=== PATIENT | female | born 1985 | race Caucasian/White ===

== ENCOUNTER 2018-10-30 18:03 | Emergency (ER) | payer BC ==
--- NOTE | 2018-10-30 18:15 | EDPHY ---
HPI/HX/ROS/PE/MDM Narrative: CLINICAL IMPRESSION: Acute pyelonephritis ASSESSMENT/PLAN: Patient is a 33-year-old female with a history of recurrent urinary tract infections and renal stone who presents to the emergency department with right flank pain, fevers, chills and dysuria. Patient is afebrile, nontoxic appearing , she is in no distress on arrival. Her abdomen was soft with mild suprapubic tenderness to palpation to palpation, no peritoneal signs and no evidence of a surgical abdomen; right CVA tenderness. CBC revealed mild [place] [id number]. Vital signs were reviewed- she was noted to be tachycardic on arrival, with fluid resuscitation initiated based on sepsis protocol. Lactate was reassuring and normal at 0.6. BMP revealed mild hypokalemia, no evidence of JOEL. UA with 3+ leukocyte esterase, 50-180 WBCs and bacteria; urine sent for culture. CT abdomen and pelvis w/out revealed nonobstructive 2 mm left nephrolith, no evidence of right-sided obstructive uropathy or evidence of ureterolithiasis; normal appearing appendix. History and physical examination is consistent with acute pyelonephritis, no evidence of stone. Patient was given 1.5 L of IV fluids, several doses of narcotic, Zofran and Toradol with marked improvement of symptoms in the emergency department. At this time I have considered other etiologies of her pain to include appendicitis, cholecystitis, pancreatitis, ACS, perforated viscus, diverticulitis, hernia, AAA, mesenteric ischemia or additional emergent intra-abdominal process however low clinical suspicion. negative, rule out ectopic. No pelvic pain to suggest PID, TOA or torsion. On repeat examination and prior to discharge the patient reports that she is feeling significantly better, her abdomen remained soft without evidence of a surgical abdomen. Her heart rate normalized to the low 90s. The patient is in the process of establishing care with Dr. Shay and will call tomorrow to ensure an appointment for repeat examination. Conservative return precautions discussed- patient will return for development of fever, persistent nausea or vomiting, signs of dehydration, chest pain, shortness of breath, abdominal pain , worsening or uncontrolled flank pain, urinary retention, dysuria, hematuria or for any other concerning symptom. The patient verbalizes understanding and she is in agreement with this plan. Case discussed with and patient seen by Dr. Means. DIFFERENTIAL DX: Flank pain including but not limited to musculoskeletal causes, kidney stone, pyelonephritis, shingles, and intra-abdominal causes such as diverticulitis and appendicitis. ED COURSE: 6:40 p.m.: Discussed with Dr. Means. 7:31 p.m.: Patient with a remote rash after taking Ceclor as a child, discussed with pharmacist. Safe to continue with 1 g of Rocephin. 8:25 p.m.: On repeat examination the patient is well-appearing, heart rate normalized at 90. Patient reports she is feeling significantly better. Patient feels ready to be discharged home. CHIEF COMPLAINT: Fever, chills, nausea and right flank pain HPI: Patient is a 33-year-old female who presents to the emergency department with complaints of fever, chills, nausea, decreased appetite and severe right flank pain. Patient reports a sudden onset of throbbing right flank pain yesterday at approximately 11:00 a.m., she took some CBD oil and Excedrin and ultimately the pain went away. This morning she woke up generally feeling unwell, felt feverish with body aches and chills. She was feeling better throughout the day however at 3 PM had another sudden onset of right flank pain that has been constant. She is now experiencing some dysuria and increased frequency of urination however denies any hematuria. Patient reports intermittent lower abdominal discomfort, denies any pelvic pain, vaginal bleeding or vaginal discharge. Does have a history of ovarian cyst, this does not feel similar to her. Last menstrual period 4 weeks ago, due. Patient was seen and evaluated at urgent care and sent here for further evaluation and treatment. Patient reports a history of frequent urinary tract infections up until several years ago. Also reports a history of a kidney stone as a child. No history of infected stones or lithotripsy. PMH: Frequent UTI, kidney stone Pertinent Past Surgical History: Denies Family History: Noncontributory Social History: CBD or oil, denies smoking, denies alcohol REVIEW OF SYSTEMS: All other systems negative Constitutional: Fever, chills and appetite change Eyes: No discharge, vision change ENT: No sore throat, congestion, ear pain. Cardiovascular: No chest pain, no palpitations. Respiratory: No cough, no shortness of breath. Gastrointestinal: Lower abdominal discomfort, nausea; denies vomiting, melena or hematochezia. Genitourinary: Right flank pain, dysuria; No hematuria or pelvic pain Musculoskeletal: No joint swelling, joint pain. Skin: No rashes, color change. Neurological: No dizziness, weakness. PHYSICAL EXAM: General Appearance: Alert, oriented, appropriate, cooperative, NAD, well hydrated, non-toxic appearing, VSS, no hypoxia. HEENT: TMs are clear bilaterally no perforation or FB, no injection, no evidence of serous or mucopurulent otitis. Oropharynx clear is no erythema or exudates, no tonsillar hypertrophy or asymmetry. Dentition without abnormality. Eyes: PERRLA, no acute vision change, nystagmus, swelling, discharge, pain or photosensitivity. Conjunctiva pink, no pallor or injection Neck: Supple, nontender, no lymphadenopathy, no midline pain, FROM, no meningismus. Respiratory: There are no retractions, lungs are clear to auscultation. Cardiac: Tachycardic on arrival, no murmurs or gallops. Gastrointestinal: Abdomen is soft, mild suprapubic tenderness to palpation, bowel sounds normal, no masses/hernia, no rigidity, guarding or focal peritoneal findings. Right CVA tenderness Neurological: Alert and oriented x 3, CN 2-12 grossly intact, normal gait no ataxia, DTR's intact, normal sensation and strength Skin: Warm, dry, no rashes, no nodules on palpation. Musculoskeletal: Extremities are symmetrical, full range of motion, no tenderness, deformity, swelling, or erythema. Psychiatric: Patient is oriented X 3, there is no agitation. MEDICAL DECISION MAKING: Patient was seen with Dr. Means. Diagnosis: Acute pyelonephritis. New, requires workup Summary: See Assessment and Plan for summary of ED visit Clinical lab tests: ordered / reviewed. Independent visualization of images, tracing, or specimens: Yes. Decision to obtain medical records or history from someone other than the patient: No Review / Summarize previous medical records: Not applicable Discussed patient with another provider: Yes, Dr. Means Patient Progress: Stable for discharge.. (Taisha Rao) ED Course: This patient was seen and examined by me. She is nontoxic appearing, abdomen is soft and nontender. She presents with right flank pain and fever. Pain is intermittent, concerning for urinary tract infection with obstruction. For this reason, CT scan of the abdomen and pelvis without IV contrast ordered. Urinalysis reveals urinary tract infection. Urine and blood culture sent. Rocephin 1 g IV given. I agree with the assessment and plan. (Luz Means) - Data Points Imaging Results: Imaging Impressions Abdomen/Pelvis CT 10/30/18 18:39 Impression: 1. There is a nonobstructive 2 mm left nephrolith. 2. There is no evidence of right-sided obstructive uropathy, and no convincing evidence of ureterolithiasis. This exam does not exclude pyelonephritis. 3. Normal appearance of the appendix. Attention: This CT examination is specifically designed to evaluate patients who are clinically suspected of having acute obstructive uropathy. This examination does not use radiographic contrast, and as such, provides only a limited evaluation of the abdomen, pelvis, and retroperitoneum. If there is further clinical suspicion for pathological conditions other than obstructive uropathy, a complete CT evaluation of the abdomen and pelvis utilizing intravenous, oral, and rectal contrast should be considered. Findings were discussed with Patricia Means M.D. at 19:48, on 10/30/2018. Laboratory Results: Laboratory Results 10/30/18 18:35 10/30/18 18:35 10/30/18 10/30/18 10/30/18 19:30 18:35 18:35 WBC RBC Hgb Hct MCV MCH MCHC RDW Plt Count MPV Neut % (Auto) Lymph % (Auto) Dolores % (Auto) Eos % (Auto) Baso % (Auto) Nucleat RBC Rel Count Absolute Neuts (auto) Absolute Lymphs (auto) Absolute Monos (auto) Absolute Eos (auto) Absolute Basos (auto) Absolute Nucleated RBC Immature Gran % Immature Gran # Platelet Estimate VBG Lactic Acid 0.6 mmol/L L mmol/L (0.7-2.1) Sodium 134 mEq/L L mEq/L (135-145) Potassium 3.2 mEq/L L mEq/L (3.5-5.2) Chloride 104 mEq/L mEq/L (97-110) Carbon Dioxide 22 mEq/l mEq/l (22-31) Anion Gap 8 mEq/L mEq/L (6-14) BUN 8 mg/dL mg/dL (7-23) Creatinine 0.7 mg/dL mg/dL (0.6-1.0) Estimated GFR > 60 Glucose 98 mg/dL mg/dL (70-100) Calcium 9.1 mg/dL mg/dL (8.5-10.4) Total Bilirubin 1.0 mg/dL mg/dL (0.1-1.4) Conjugated Bilirubin 0.3 mg/dL mg/dL (0.0-0.5) Unconjugated Bilirubin 0.7 mg/dL mg/dL (0.0-1.1) AST 16 IU/L IU/L (14-46) ALT 20 IU/L IU/L (9-52) Alkaline Phosphatase 39 IU/L IU/L (38-126) Lactate Dehydrogenase 359 IU/L IU/L (313-618) Total Protein 7.0 g/dL g/dL (6.3-8.2) Albumin 4.0 g/dL g/dL (3.5-5.0) Lipase 46 IU/L IU/L (23-300) Beta HCG, Qual NEGATIVE Urine Color Urine Appearance Urine pH Ur Specific Alvin Urine Protein Urine Ketones Urine Blood Urine Nitrate Urine Bilirubin Urine Urobilinogen Ur Leukocyte Esterase Urine RBC Urine WBC Ur Epithelial Cells Urine Bacteria Urine Mucus Urine Glucose 10/30/18 10/30/18 18:35 18:18 WBC 12.78 10^3/uL H 10^3/uL (3.80-9.50) RBC 4.32 10^6/uL 10^6/uL (4.18-5.33) Hgb 13.0 g/dL g/dL (12.6-16.3) Hct 38.3 % % (38.0-47.0) MCV 88.7 fL fL (81.5-99.8) MCH 30.1 pg pg (27.9-34.1) MCHC 33.9 g/dL g/dL (32.4-36.7) RDW 13.4 % % (11.5-15.2) Plt Count 202 10^3/uL 10^3/uL (150-400) MPV 10.8 fL fL (8.7-11.7) Neut % (Auto) 85.8 % H % (39.3-74.2) Lymph % (Auto) 4.6 % L % (15.0-45.0) Dolores % (Auto) 8.3 % % (4.5-13.0) Eos % (Auto) 0.8 % % (0.6-7.6) Baso % (Auto) 0.2 % L % (0.3-1.7) Nucleat RBC Rel Count 0.0 % % (0.0-0.2) Absolute Neuts (auto) 10.96 10^3/uL H 10^3/uL (1.70-6.50) Absolute Lymphs (auto) 0.59 10^3/uL L 10^3/uL (1.00-3.00) Absolute Monos (auto) 1.06 10^3/uL H 10^3/uL (0.30-0.80) Absolute Eos (auto) 0.10 10^3/uL 10^3/uL (0.03-0.40) Absolute Basos (auto) 0.03 10^3/uL 10^3/uL (0.02-0.10) Absolute Nucleated RBC 0.00 10^3/uL 10^3/uL (0-0.01) Immature Gran % 0.3 % % (0.0-1.1) Immature Gran # 0.04 10^3/uL 10^3/uL (0.00-0.10) Platelet Estimate TNP VBG Lactic Acid Sodium Potassium Chloride Carbon Dioxide Anion Gap BUN Creatinine Estimated GFR Glucose Calcium Total Bilirubin Conjugated Bilirubin Unconjugated Bilirubin AST ALT Alkaline Phosphatase Lactate Dehydrogenase Total Protein Albumin Lipase Beta HCG, Qual Urine Color YELLOW Urine Appearance HAZY Urine pH 5.0 (5.0-7.5) Ur Specific Alvin 1.013 (1.002-1.030) Urine Protein 1+ H (NEGATIVE) Urine Ketones 1+ H (NEGATIVE) Urine Blood 2+ H (NEGATIVE) Urine Nitrate NEGATIVE (NEGATIVE) Urine Bilirubin NEGATIVE (NEGATIVE) Urine Urobilinogen NEGATIVE EU EU (0.2-1.0) Ur Leukocyte Esterase 3+ H (NEGATIVE) Urine RBC 15-25 /hpf H /hpf (0-3) Urine WBC 50-182 /hpf H /hpf (0-3) Ur Epithelial Cells TRACE /lpf /lpf (NONE-1+) Urine Bacteria TRACE /hpf H /hpf (NONE SEEN) Urine Mucus TRACE /lpf /lpf (NONE-1+) Urine Glucose NEGATIVE (NEGATIVE) Medications Given: Ondansetron HCl (Zofran) 4 mg IVP Q4 PRN PRN Reason: Nausea/Vomiting, Can't Take PO Stop: 04/28/19 18:31 Last Admin: 10/30/18 18:43 Dose: 4 mg Discontinued Medications Hydromorphone HCl (Dilaudid) 0.5 mg IVP EDNOW ONE Stop: 10/30/18 18:33 Last Admin: 10/30/18 18:44 Dose: 0.5 mg Hydromorphone HCl (Dilaudid) 0.5 mg IVP EDNOW ONE Stop: 10/30/18 19:28 Last Admin: 10/30/18 19:31 Dose: 0.5 mg Sodium Chloride (Ns) 1,000 mls @ 0 mls/hr IV EDNOW ONE; Wide Open PRN Reason: Protocol Stop: 10/30/18 18:18 Last Admin: 10/30/18 18:38 Dose: 1,000 mls Sodium Chloride (Ns) 500 mls @ 1,500 mls/hr IV ONCE ONE Stop: 10/30/18 19:04 Last Admin: 10/30/18 19:11 Dose: 500 mls Ceftriaxone Sodium/Dextrose (Rocephin 1 Gm (Premix)) 50 mls @ 100 mls/hr IV EDNOW ONE PRN Reason: Protocol Stop: 10/30/18 19:57 Last Admin: 10/30/18 19:35 Dose: 50 mls Ketorolac Tromethamine (Toradol) 15 mg IVP EDNOW ONE Stop: 10/30/18 19:30 Last Admin: 10/30/18 19:35 Dose: 15 mg General Initial Vital Signs: Initial Vital Signs Temperature (C) 36.9 C 10/30/18 18:05 Heart Rate 121 H 10/30/18 18:05 Respiratory Rate 16 10/30/18 18:05 Blood Pressure 104/67 10/30/18 18:05 O2 Sat (%) 97 10/30/18 18:05 O2 Delivery Mode Room Air Allergies/Adverse Reactions: No Known Allergies Allergy (Unverified 10/30/18 18:10) Home Medications: Medication Instructions Recorded Cefuroxime Axetil [Ceftin (*)] 500 mg PO BID 10 Days tab 10/30/18 Departure - Departure Disposition: Home, Routine, Self-Care Clinical Impression: Acute pyelonephritis Condition: Good Instructions: Hydrocodone/Acetaminophen (By mouth), Urinary Tract Infection in Women (ED), Kidney Infection (ED) Additional Instructions: DISCHARGE INSTRUCTIONS FROM YOUR DOCTOR Thank you for visiting our emergency department today. Please keep in mind that discharge from the emergency department does not mean that there is nothing wrong - it simply means that we have not identified an emergency condition that requires further evaluation or treatment in the hospital. You should always plan to follow up with primary care for re-evaluation of your condition in the next 2-3 days. If you have been referred to a specialist, please call as soon as possible (today or tomorrow) to schedule your follow up appointment at the appropriate time. Rest, push non-diuretic, non-caffeinated fluids, clear liquid diet, then a BRAT diet (bananas, rice, applesauce, toast), then slowly advance diet to normal. Attempt small frequent meals. Urinate regularly. Urinate after intercourse if sexually active. [ ] antibiotic as prescribed every 12 hours. You received your first dose here today. Next dose in 12 hours. Consider over the counter probiotics to help prevent antibiotic associated diarrhea. Zofran as prescribed as needed for any recurrent nausea and/or vomiting. Take [ ] as prescribed if needed for pain. Do not take this medication with tylenol or other tylenol-containing medications. Do not take this medication while you are drinking alcohol, driving, working, supervising persons or operating machinery. This medication can make you sleepy. You may need to take a stool softener, such as Colace, which is available [id number], while you take this narcotic pain medicine, as it may make you constipated. Pyridium as prescribed as needed for burning with urination. Caution - this can cause urine and contact lenses to turn orange. As discussed, a urine culture is pending at the lab. Your antibiotic may need to be changed. If it does, you will be contacted in the next 3-5 days by phone. Be sure we have a working phone number. Schedule a follow-up appointment with your primary care physician in the next 1- 2 days for re-evaluation. Bring a copy of your test results with you to that appointment. Return for increased or unmanageable pain, development of abdominal pain, groin pain, pelvic pain, back pain, flank pain, fever, chills, recurrent vomiting, vomiting blood or coffee grounds, diarrhea, constipation, bloody stool, black tarry stools, burning or pain with urination, bloody urine, inability to urinate , decreased urine output or other signs of dehydration, development of fever, chills, dizziness, weakness, fainting, difficulty breathing or swallowing, chest pain, coughing, coughing up blood, ankle swelling, or for any other new, worsening or worrisome symptoms. People present with illnesses and injuries in different ways, and it is always possible that we have missed something. You may always return for re-evaluation if symptoms worsen or if they are not improving or if you develop new/different symptoms. Again, thank you for choosing our emergency department. We hope that you feel better. Referrals: JOHN SHAY [Primary Care Provider] - 1-2 days without fail Prescriptions: Cefuroxime Axetil [Ceftin (*)] 500 mg PO BID 10 Days tab
[2018-10-30] MEDS ORDERED: NS 1,000 ML IV ONE (18:17)
[2018-10-30] MEDS ORDERED: HYDROmorphONE/DILAUDID 2 MG/ML INJ IVP ONE ×2 (18:32→19:27)
[2018-10-30] MEDS ORDERED: ONDANSETRON 4 MG/2 ML VIAL IVP PRN (18:32)
[2018-10-30] MEDS ORDERED: NS 500 ML IV ONE (18:45)
[2018-10-30 18:48] LABS: PLATELET COUNT 202 10^3/uL (150-400)
[2018-10-30] MEDS ORDERED: IOPAMIDOL (ISOVUE-300) 100 ML BTL ONE (19:12)
[2018-10-30] MEDS ORDERED: HYDROmorphONE/DILAUDID 1 MG/ML INJ ONE (19:28)
[2018-10-30] MEDS ORDERED: KETOROLAC 15 MG/1 ML SDV IVP ONE (19:29)
[2018-10-30] MEDS ORDERED: HYDROCOD/APAP 5/325 PREPACK#6 BTL TAKEHOME ONE (20:26)
[2018-10-30 21:00] VITALS: BP 96/58
== END 2018-10-30 21:07 | disposition home or self-care (01) ==
DX: N10 Acute pyelonephritis (principal); N20.0 Calculus of kidney; E86.9 Volume depletion, unspecified
CPT/HCPCS: 96365; J0696; J1170; J1885; J2405; Q9967

== ENCOUNTER 2018-10-31 13:46 | Inpatient (IN) | payer BC ==
[2018-10-31] MEDS ORDERED: NS 1,000 ML IV ONE (14:26)
--- NOTE | 2018-10-31 14:31 | EDPHY ---
H & P Stated Complaint: + BLOOD CULTURES FROM 10/30, ONGOING LOW BACK PAIN AND UTI Time Seen by Provider: 10/31/18 14:27 HPI/ROS: HPI: This is a 33-year-old female who presents with Chief Complaint: + BLOOD CULTURES FROM 10/30, ONGOING LOW BACK PAIN AND UTI Location: Quality: Duration: Signs and Symptoms: no fever, no nausea, no vomiting, no hematemesis, no blood in stool, no abdominal bloating, no diarrhea, no back pain, no urinary symptoms , no testicular/groin pain, no indigestion, no chest pain, no shortness of breath Timing: Severity: Context: Patient presents with positive blood cultures from 10/30/2018 of E coli with ongoing low back pain mostly on the right and dysuria/urinary type symptoms. She was seen in this emergency room on 09/11 with complaints of right flank pain, fever 102 F max 2 hr prior to arrival, chills and burning with urination. CBC revealed mild [place] [address]. No lactic acidosis was seen at that time. No evidence of acute kidney injury. UA was positive with 3+ leukocytes, WBCs and bacteria. Urine culture is still pending. CT abdomen and pelvis without contrast revealed nonobstructive 2 mm left nephrolithiasis but no evidence of right-sided obstructive uropathy and normal appearing appendix. Patient was given aggressive fluid hydration and IV Rocephin. Patient was given a prescription for Ceftin but she has not filled it and has not taking any outpatient antibiotics. Modifying Factors: See above Comment: ROS: A comprehensive 10 system review of systems is otherwise negative aside from elements mentioned in the history of present illness. MEDICAL/SURGICAL/SOCIAL HISTORY: Medical history: Kidney infection, renal stone.. LMP 2-3 weeks ago. Surgical history: Denies Social history: Current every day smoker. Family history noncontributory. CONSTITUTIONAL: nontoxic appearing young adult female, awake and alert, no obvious distress HEENT: Atraumatic and normocephalic, PERRL, EOMI. Nares patent; no rhinorrhea; no nasal mucosal edema. Tympanic membranes clear. Oropharynx clear, no exudate and moist pink mucosa. Airway patent. No lymphadenopathy. No meningismus. Cardiovascular: Normal S1/S2, regular rate, regular rhythm, without murmur rub or gallop. PULMONARY/CHEST: Symmetrical and nontender. Clear to auscultation bilaterally. Good air movement. No accessory muscle usage. ABDOMEN: Soft, nondistended, nontender, no rebound, no guarding, no peritoneal signs, no masses or organomegaly. + right CVAT. EXTREMITIES: 2/2 pulses, strength 5/5, no deformities, no clubbing, no cyanosis or edema. NEUROLOGICAL: no focal neuro deficits. GCS 15. SKIN: Warm and dry, no erythema. no rash. Good capillary refill. Source: Patient Exam Limitations: No limitations - Personal History LMP (Females 10-55): 22-28 Days Ago Current Tetanus Diphtheria and Acellular Pertussis (TDAP): Unsure - Medical/Surgical History Other PMH: UTIs, KIDNEY STONE - Social History Smoking Status: Current some day smoker Constitutional: Initial Vital Signs Temperature (C) 36.4 C 10/31/18 13:51 Heart Rate 88 10/31/18 13:51 Respiratory Rate 16 10/31/18 13:51 Blood Pressure 111/67 10/31/18 13:51 O2 Sat (%) 99 10/31/18 13:51 O2 Delivery Mode Room Air Allergies/Adverse Reactions: No Known Allergies Allergy (Unverified 10/30/18 18:10) Home Medications: Medication Instructions Recorded Cefuroxime Axetil [Ceftin (*)] 500 mg PO BID 10 Days tab 10/30/18 Medical Decision Making ED Course/Re-evaluation: Vital signs reviewed and stable upon arrival. IV access, laboratory studies including lactic acid, urinalysis ordered Patient given 1 L normal saline and IV Rocephin 2 g ED decision to consult hospitalist for lower urinary tract infection and E coli bacteremia. Spoke with Dr. Olivera who kindly agrees to admit patient and provide further care. Laboratory studies pending at time of consult. 1530: Labs reviewed. WBC 10 K, lactic acid 0.9, urinalysis is negative, creatinine 0.6, potassium 3.6-labs are improved from prior studies obtained yesterday since administration of Rocephin This patient was seen under the supervision of my secondary supervising physician. I evaluated care for this patient independently. Discussed this patient with Dr. Herndon who did not see the patient. Differential Diagnosis: Flank pain including but not limited to musculoskeletal causes, kidney stone, pyelonephritis, shingles, and intra-abdominal causes such as diverticulitis and appendicitis. - Data Points Medications Given: Sodium Chloride (Ns) 1,000 mls @ 150 mls/hr IV CONT AFIA Stop: 04/29/19 14:59 Last Admin: 10/31/18 16:20 Dose: 1,000 mls Discontinued Medications Sodium Chloride (Ns) 1,000 mls @ 0 mls/hr IV ONCE ONE; Wide Open PRN Reason: Protocol Stop: 10/31/18 14:27 Last Admin: 10/31/18 15:01 Dose: 1,000 mls Ceftriaxone Sodium 2 gm/ (Sodium Chloride) 50 mls @ 100 mls/hr IV EDNOW ONE PRN Reason: Protocol Stop: 10/31/18 15:00 Last Admin: 10/31/18 15:24 Dose: 50 mls Departure - Departure Disposition: [facility] Acute Clinical Impression: Bacteremia due to Escherichia coli, Pyelonephritis Condition: Fair
[2018-10-31] MEDS ORDERED: ONDANSETRON 4 MG/2 ML VIAL IVP PRN (14:47)
[2018-10-31] MEDS ORDERED: ZOLPIDEM TARTRATE 5 MG TAB PO PRN (14:47)
[2018-10-31 15:25] LABS: PLATELET COUNT 197 10^3/uL (150-400)
--- NOTE | 2018-10-31 15:59 | PDGENHP ---
Addendum entered and electronically signed by Magdalene Decker NP 10/31/18 19:03 : Pt with nausea and acute pain. Still waiting for antibiotic sensitivity. Highly unlikely she will be discharged tomorrow. Changed admission from obs to inpatient. Original Note: <Magdalene Decker - Last Filed: 10/31/18 16:17> History and Physical - Chief Complaint pylenonephritis - History of Present Illness 33 y/o female with history of chronic UTIs and kidney stones presented to the emergency room yesterday after experiencing 2 days worth of max temperature of 102F degrees, chills and right sided flank pain. She had mild leukocytosis and positive urinalysis with 3+ leukocytes, WBCs and bacteria. CT abdomen and pelvis without contrast revealed nonobstructive 2 mm left nephrolithiasis but no evidence of right-sided obstructive uropathy and normal appearing appendix. She was given aggressive IV hydration and IV Rocephin. She was discharged after receiving a prescription for oral Ceftin however she ended up not getting the prescription fill. She received a call today that her blood cultures came back positive for e-coli. 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 She reportedly takes 2 tablets of Excedrin per day and has for a couple of weeks. She is being admitted for IV antibiotics and monitoring. Past Medical/Surgical History 1. Kidney stones 2. UTIs (last UTI was one year ago) Social 1. Significant other at bedside with pt 2. Smokes 1-2 cigarettes every 2 weeks. Denies illicit drug use. Drinks 1-2 alcohol beverages 3-4 days out of the week. History Information - Allergies/Home Medication List Allergies/Adverse Reactions: cefaclor Allergy (Mild, Verified 10/31/18 17:19) Rash I have personally reviewed and updated: family history, medical history, social history, surgical history Past Medical History: See HPI list - Past Medical History Additional medical history: See HPI list - Surgical History Additional surgical history: See HPI list - Social History Smoking Status: Current some day smoker Alcohol Use: Occasionally Drug Use: None Review of Systems Review of Systems: ROS: 10pt was reviewed & negative except for what was stated in HPI & below Constitutional: Reports: malaise EENMT: Reports: no symptoms Cardiac: Reports: no symptoms Respiratory: Reports: no symptoms Gastrointestinal: Reports: no symptoms Genitourinary: Reports: flank pain (Right sided) Muscolosketal: Reports: no symptoms Skin: Reports: no symptoms Neurological: Reports: no symptoms Hematologic/Lymphatic: Reports: no symptoms Immunologic/Allergy: Reports: no symptoms Physical Exam Physical Exam: Lab data and imaging reviewed Temp Pulse Resp BP Pulse Ox 36.5 C 86 14 114/77 96 10/31/18 15:45 10/31/18 15:45 10/31/18 15:45 10/31/18 15:45 10/31/18 15:45 Constitutional: no apparent distress, appears nourished, not in pain Eyes: PERRL, anicteric sclera, EOMI Ears, Nose, Mouth, Throat: moist mucous membranes, hearing normal, ears appear normal, no oral mucosal ulcers Cardiovascular: regular rate and rhythym, no murmur, rub, or gallop, No edema Peripheral Pulses: 2+: dorsalis-pedis (R) (Radial 2+), dorsalis-pedis (L) ( Radial 2+) Respiratory: no respiratory distress, no rales or rhonchi, clear to auscultation Gastrointestinal: normoactive bowel sounds, soft, non-tender abdomen, no palpable masses, other (Right sided + CVA tenderness. Negative CVA left sided) Genitourinary: no bladder fullness, no bladder tenderness Skin: warm, normal color, no rashes or abrasions, no fluctuance, no induration, No mottled Musculoskeletal: full muscle strength, no muscle tenderness, normal joint ROM, no joint effusions Neurologic: AAOx3, sensation intact bilaterally, CN II-XII Intact Psychiatric: interacting appropriately, not anxious, not encephalopathic, thought process linear Lymph, Heme, Immunologic: no cervical LAD, no supraclavicular LAD Lab Data & Imaging Review 10/31/18 14:55 10/31/18 14:55 WBC 10.18 10^3/uL (3.80-9.50) H 10/31/18 14:55 RBC 4.19 10^6/uL (4.18-5.33) 10/31/18 14:55 Hgb 12.6 g/dL (12.6-16.3) 10/31/18 14:55 Hct 37.9 % (38.0-47.0) L 10/31/18 14:55 MCV 90.5 fL (81.5-99.8) 10/31/18 14:55 MCH 30.1 pg (27.9-34.1) 10/31/18 14:55 MCHC 33.2 g/dL (32.4-36.7) 10/31/18 14:55 RDW 13.7 % (11.5-15.2) 10/31/18 14:55 Plt Count 197 10^3/uL (150-400) 10/31/18 14:55 MPV 11.2 fL (8.7-11.7) 10/31/18 14:55 Neut % (Auto) 76.8 % (39.3-74.2) H 10/31/18 14:55 Lymph % (Auto) 14.1 % (15.0-45.0) L 10/31/18 14:55 Tyrrell % (Auto) 6.6 % (4.5-13.0) 10/31/18 14:55 Eos % (Auto) 1.8 % (0.6-7.6) 10/31/18 14:55 Baso % (Auto) 0.3 % (0.3-1.7) 10/31/18 14:55 Nucleat RBC Rel Count 0.0 % (0.0-0.2) 10/31/18 14:55 Absolute Neuts (auto) 7.82 10^3/uL (1.70-6.50) H 10/31/18 14:55 Absolute Lymphs (auto) 1.44 10^3/uL (1.00-3.00) 10/31/18 14:55 Absolute Monos (auto) 0.67 10^3/uL (0.30-0.80) 10/31/18 14:55 Absolute Eos (auto) 0.18 10^3/uL (0.03-0.40) 10/31/18 14:55 Absolute Basos (auto) 0.03 10^3/uL (0.02-0.10) 10/31/18 14:55 Absolute Nucleated RBC 0.00 10^3/uL (0-0.01) 10/31/18 14:55 Immature Gran % 0.4 % (0.0-1.1) 10/31/18 14:55 Immature Gran # 0.04 10^3/uL (0.00-0.10) 10/31/18 14:55 VBG Lactic Acid 0.9 mmol/L (0.7-2.1) 10/31/18 14:55 Sodium 137 mEq/L (135-145) 10/31/18 14:55 Potassium 3.6 mEq/L (3.5-5.2) 10/31/18 14:55 Chloride 106 mEq/L (97-110) 10/31/18 14:55 Carbon Dioxide 25 mEq/l (22-31) 10/31/18 14:55 Anion Gap 6 mEq/L (6-14) 10/31/18 14:55 BUN 10 mg/dL (7-23) 10/31/18 14:55 Creatinine 0.6 mg/dL (0.6-1.0) 10/31/18 14:55 Estimated GFR > 60 10/31/18 14:55 Glucose 93 mg/dL (70-100) 10/31/18 14:55 Calcium 8.6 mg/dL (8.5-10.4) 10/31/18 14:55 Total Bilirubin 0.4 mg/dL (0.1-1.4) 10/31/18 14:55 Conjugated Bilirubin 0.4 mg/dL (0.0-0.5) 10/31/18 14:55 Unconjugated Bilirubin 0.0 mg/dL (0.0-1.1) 10/31/18 14:55 AST 15 IU/L (14-46) 10/31/18 14:55 ALT 20 IU/L (9-52) 10/31/18 14:55 Alkaline Phosphatase 39 IU/L (38-126) 10/31/18 14:55 Total Protein 6.2 g/dL (6.3-8.2) L 10/31/18 14:55 Albumin 3.5 g/dL (3.5-5.0) 10/31/18 14:55 Urine Color PALE YELLOW 10/31/18 15:12 Urine Appearance CLEAR 10/31/18 15:12 Urine pH 6.0 (5.0-7.5) 10/31/18 15:12 Ur Specific [place] 1.005 (1.002-1.030) 10/31/18 15:12 Urine Protein NEGATIVE (NEGATIVE) 10/31/18 15:12 Urine Ketones NEGATIVE (NEGATIVE) 10/31/18 15:12 Urine Blood NEGATIVE (NEGATIVE) 10/31/18 15:12 Urine Nitrate NEGATIVE (NEGATIVE) 10/31/18 15:12 Urine Bilirubin NEGATIVE (NEGATIVE) 10/31/18 15:12 Urine Urobilinogen NEGATIVE EU (0.2-1.0) 10/31/18 15:12 Ur Leukocyte Esterase NEGATIVE (NEGATIVE) 10/31/18 15:12 Urine Glucose NEGATIVE (NEGATIVE) 10/31/18 15:12 Assessment & Plan Plan: 33 y/o female presenting with e-coli in blood and pyelonephritis. Mild leukocytosis, today's UA negative and lactic acid 0.9. Urine culture still pending. Bacteremia due to Escherichia coli Pyelonephritis -Aggressive IVF hydration -Rocephin IVP QD -Check BMP and creatinine tomorrow morning -Possible d/c tomorrow pending clinical presentation; PO antibiotics duration 5- 14 days depending on rapidity of response and antibiotic used to complete therapy Diet: Regular VTE ppx: Up ad kira Code: Full Dispo: Admit to obs <Fercho Olivera - Last Filed: 10/31/18 23:44> History and Physical - History of Present Illness Review of Systems Review of Systems: Physical Exam Physical Exam: Temp Pulse Resp BP Pulse Ox 36.8 C 81 16 112/64 95 10/31/18 23:27 10/31/18 23:27 10/31/18 23:27 10/31/18 23:27 10/31/18 23:27 Lab Data & Imaging Review 10/31/18 14:55 10/31/18 14:55 WBC 10.18 10^3/uL (3.80-9.50) H 10/31/18 14:55 RBC 4.19 10^6/uL (4.18-5.33) 10/31/18 14:55 Hgb 12.6 g/dL (12.6-16.3) 10/31/18 14:55 Hct 37.9 % (38.0-47.0) L 10/31/18 14:55 MCV 90.5 fL (81.5-99.8) 10/31/18 14:55 MCH 30.1 pg (27.9-34.1) 10/31/18 14:55 MCHC 33.2 g/dL (32.4-36.7) 10/31/18 14:55 RDW 13.7 % (11.5-15.2) 10/31/18 14:55 Plt Count 197 10^3/uL (150-400) 10/31/18 14:55 MPV 11.2 fL (8.7-11.7) 10/31/18 14:55 Neut % (Auto) 76.8 % (39.3-74.2) H 10/31/18 14:55 Lymph % (Auto) 14.1 % (15.0-45.0) L 10/31/18 14:55 Tyrrell % (Auto) 6.6 % (4.5-13.0) 10/31/18 14:55 Eos % (Auto) 1.8 % (0.6-7.6) 10/31/18 14:55 Baso % (Auto) 0.3 % (0.3-1.7) 10/31/18 14:55 Nucleat RBC Rel Count 0.0 % (0.0-0.2) 10/31/18 14:55 Absolute Neuts (auto) 7.82 10^3/uL (1.70-6.50) H 10/31/18 14:55 Absolute Lymphs (auto) 1.44 10^3/uL (1.00-3.00) 10/31/18 14:55 Absolute Monos (auto) 0.67 10^3/uL (0.30-0.80) 10/31/18 14:55 Absolute Eos (auto) 0.18 10^3/uL (0.03-0.40) 10/31/18 14:55 Absolute Basos (auto) 0.03 10^3/uL (0.02-0.10) 10/31/18 14:55 Absolute Nucleated RBC 0.00 10^3/uL (0-0.01) 10/31/18 14:55 Immature Gran % 0.4 % (0.0-1.1) 10/31/18 14:55 Immature Gran # 0.04 10^3/uL (0.00-0.10) 10/31/18 14:55 VBG Lactic Acid 0.9 mmol/L (0.7-2.1) 10/31/18 14:55 Sodium 137 mEq/L (135-145) 10/31/18 14:55 Potassium 3.6 mEq/L (3.5-5.2) 10/31/18 14:55 Chloride 106 mEq/L (97-110) 10/31/18 14:55 Carbon Dioxide 25 mEq/l (22-31) 10/31/18 14:55 Anion Gap 6 mEq/L (6-14) 10/31/18 14:55 BUN 10 mg/dL (7-23) 10/31/18 14:55 Creatinine 0.6 mg/dL (0.6-1.0) 10/31/18 14:55 Estimated GFR > 60 10/31/18 14:55 Glucose 93 mg/dL (70-100) 10/31/18 14:55 Calcium 8.6 mg/dL (8.5-10.4) 10/31/18 14:55 Total Bilirubin 0.4 mg/dL (0.1-1.4) 10/31/18 14:55 Conjugated Bilirubin 0.4 mg/dL (0.0-0.5) 10/31/18 14:55 Unconjugated Bilirubin 0.0 mg/dL (0.0-1.1) 10/31/18 14:55 AST 15 IU/L (14-46) 10/31/18 14:55 ALT 20 IU/L (9-52) 10/31/18 14:55 Alkaline Phosphatase 39 IU/L (38-126) 10/31/18 14:55 Total Protein 6.2 g/dL (6.3-8.2) L 10/31/18 14:55 Albumin 3.5 g/dL (3.5-5.0) 10/31/18 14:55 Urine Color PALE YELLOW 10/31/18 15:12 Urine Appearance CLEAR 10/31/18 15:12 Urine pH 6.0 (5.0-7.5) 10/31/18 15:12 Ur Specific [place] 1.005 (1.002-1.030) 10/31/18 15:12 Urine Protein NEGATIVE (NEGATIVE) 10/31/18 15:12 Urine Ketones NEGATIVE (NEGATIVE) 10/31/18 15:12 Urine Blood NEGATIVE (NEGATIVE) 10/31/18 15:12 Urine Nitrate NEGATIVE (NEGATIVE) 10/31/18 15:12 Urine Bilirubin NEGATIVE (NEGATIVE) 10/31/18 15:12 Urine Urobilinogen NEGATIVE EU (0.2-1.0) 10/31/18 15:12 Ur Leukocyte Esterase NEGATIVE (NEGATIVE) 10/31/18 15:12 Urine Glucose NEGATIVE (NEGATIVE) 10/31/18 15:12 Assessment & Plan Assessment: Bacteremia due to Escherichia coli (Acute) Pyelonephritis (Acute) Plan: I examined this patient and reviewed in detail with Suyapa Decker nurse practitioner. This patient has fairly straightforward pyelonephritis with fevers and bacteremia. At this point without knowing whether her E coli has any antibiotic sensitivity issues will need to continue with IV Rocephin here in the hospital. Hopefully we can feel that over the next couple of days. She does have a significant amount of pains that is requiring IV Toradol and some narcotic here to manage in so will need to have her here in the hospital for management of pain as well. At this point will need a have her in inpatient status due to need for ongoing IV antibiotics, IV pain medicines and IV hydration. Will reassess further once we have antibiotic sensitivities. Watch closely for any signs of sepsis while she is here.
[2018-10-31] MEDS: NS 1,000 ML IV SCH ×2 (16:20→22:18)
[2018-10-31] MEDS ORDERED: ONDANSETRON DISINTEGRATING 4 MG TAB PO PRN (16:39)
[2018-10-31] MEDS: oxyCODONE IR 5 MG TAB PO PRN ×3 (17:04→23:33)
[2018-10-31] MEDS: KETOROLAC 30 MG/1 ML SDV IVP PRN (19:59)
[2018-10-31] MEDS: MELATONIN 3 MG TAB PO SCH (23:32)
--- NOTE | 2018-10-31 23:47 | HOSPPROG ---
Hospitalist Progress Note Assessment/Plan: Admission note DIAGNOSES: * Acute E coli complicated urinary tract infection with acute pyelonephritis * Borderline sepsis with high white blood cell count and tachycardia as high as 105 and high fever * Acute E coli bacteremia * Nonobstructing renal nephrolithiasis on the left * Significant pain requiring multiple analgesics for control PLANS: * Admit to hospital * IV antibiotics * IV hydration * Analgesics as needed for pain, antiemetics * Follow antibiotic sensitivities closely SUBJECTIVE: Right-sided flank pain with fevers chills rigors nausea Oxycodone at 10 mg was not enough to control her pain needed high-dose Toradol in addition to that and she still having significant discomfort OBJECTIVE Vitals reviewed: Fast heart rate so far 105 though blood pressures are holding Exam: alert oriented skin warm dry color ok resps not labored lungs clear BSs heart regular abd some mid right abdomen tenderness and right flank tenderness of significance , no rebound tenderness limbs warm, no edema iv site ok White blood cell count [id number] Blood cultures and urine cultures both with E coli, sensitivities pending Objective: Vital Signs Temp Pulse Resp BP Pulse Ox 36.8 C 81 16 112/64 95 10/31/18 23:27 10/31/18 23:27 10/31/18 23:27 10/31/18 23:27 10/31/18 23:27 Laboratory Results 10/31/18 14:55 10/31/18 14:55 10/30/18 10/31/18 11/01/18 06:59 06:59 06:59 Intake Total 1334 Output Total 1400 Balance -66 ICD10 Worksheet Patient Problems: Problems Problem Status Onset Bacteremia due to Escherichia coli Acute Pyelonephritis Acute
[2018-11-01] MEDS ORDERED: NS 500 ML IV ONE (05:17)
[2018-11-01] MEDS: ACETAMINOPHEN 325 MG TAB PO PRN ×2 (05:22→23:47)
[2018-11-01] MEDS: KETOROLAC 30 MG/1 ML SDV IVP PRN ×3 (06:30→22:02)
--- NOTE | 2018-11-01 10:11 | ASMTCMCOM ---
CM Note CM Note Notes: Pt is a 33 y/o female admitted for pyelonephritis and e coli bacteremia. Pt w/ a hx of chronic UTIs and kidney stones. Pt is currently on ivabx. Needs are TBD at this time. No therapies ordered. CM to follow. Plan: TBD Date Signed: 11/01/2018 10:10 AM Electronically Signed By:EUGENIO Boo
[2018-11-01] MEDS ORDERED: ALTEPLASE 2 MG VIAL IVP PRN (10:53)
--- NOTE | 2018-11-01 10:58 | HOSPPROG ---
Hospitalist Progress Note Assessment/Plan: 33 yo F w sepsis, ecoli bactermia 2/2 r pyelonephritis and esbl sepsis: fever, tachycardia and source pyelonephritis: change abx to erta picc line in AM ID to see nephrolithiasis: uultimately needs urologic management as outpt esbl: has had recurrent uti's no great po options as above dispo: inpt proph: scd's Subjective: case d/w dr alas. ct images reviewed/interp by me Objective: Vital Signs Temp Pulse Resp BP Pulse Ox 37.2 C 93 12 107/65 92 11/01/18 07:27 11/01/18 07:27 11/01/18 07:27 11/01/18 07:27 11/01/18 07:27 Laboratory Results 10/31/18 14:55 11/01/18 04:55 10/31/18 11/01/18 11/02/18 05:59 05:59 05:59 Intake Total 4734 2366 Output Total 3500 Balance 1234 2366 - Physical Exam Constitutional: no apparent distress, appears nourished Eyes: PERRL, anicteric sclera Ears, Nose, Mouth, Throat: moist mucous membranes, hearing normal Cardiovascular: regular rate and rhythym, no murmur, rub, or gallop Respiratory: no respiratory distress, no rales or rhonchi Gastrointestinal: normoactive bowel sounds, soft, non-tender abdomen Genitourinary: no bladder fullness, No rae in urethra Skin: warm Musculoskeletal: full muscle strength Neurologic: AAOx3 Psychiatric: interacting appropriately ICD10 Worksheet Patient Problems: Problems Problem Status Onset Bacteremia due to Escherichia coli Acute Pyelonephritis Acute
[2018-11-01] MEDS: ERTAPENEM 1 GM in NS 100 ML IV SCH (12:09)
--- NOTE | 2018-11-01 14:19 | ASMTCMCOM ---
CM Note CM Note Notes: CM spoke to Dr. Sotelo. Pt will need to be on ertapenem 1gm daily until 11/11. CM made a referral to [facility] and [facility]. [facility] is able to accept. Victorina from [facility] will most likely f/u tomorrow. [facility] to run pts insurance. PICC line to be placed tomorrow, possibly. CM to follow. Date Signed: 11/01/2018 02:18 PM Electronically Signed By:EUGENIO Boo
[2018-11-01] MEDS: oxyCODONE IR 5 MG TAB PO PRN (14:35)
--- NOTE | 2018-11-01 18:07 | GCON ---
INFECTIOUS DISEASE CONSULTATION DATE OF CONSULTATION: 11/01/2018 REASON FOR CONSULTATION: Pyelonephritis and E coli bacteremia. HISTORY OF PRESENT ILLNESS: This is a 33-year-old woman whose problems date back to approximately October 29 when she developed malaise and right back pain and fever. The patient initially sought care on the and was evaluated in the emergency room with blood cultures and received 1 dose of IV Rocephin and was discharged on p.o. antibiotics. The patient did not take any of her p.o. antibiotics as she was called back the following day for positive blood cultures and was subsequently admitted. Since onset, patient has continued to have fevers, and today, a urine culture revealed that bacteria was ESBL E coli. Patient had been on ceftriaxone since admission. She continues to have mild right-sided flank pain, chills, sweats, and fevers documented to 39.4. The patient was transitioned to ertapenem today. Patient's only international travel was to [place] in August. 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 She has a history of urinary tract infections, but has not had any for 1 year after taking a variety of herbal medicines prescribed by her boyfriend. Prior to that, she took serial antibiotics that were self-administered based on suprapubic pain. Also, prior to the onset of this illness approximately by 2 days, she did go [place]. She has never been admitted to the hospital for a urinary tract infection. The patient endorses use of Macrobid, Bactrim, and Cipro in the past. She has not had a workup for causes of recurrent UTIs previously, but does have a remote history at age 9 of ureteral surgery for unclear reason. PAST MEDICAL HISTORY: Recurrent UTIs. PAST SURGICAL HISTORY: As per HPI. FAMILY HISTORY: Negative for cancer. She does have an aunt who has nephrolithiasis. SOCIAL HISTORY: She occasionally smokes tobacco. She is a guitar instructor. No alcohol. She is partnered. She is sexually active. Not using condoms or any other control method. Patient grew up in the . area. REVIEW OF SYSTEMS: A complete 10-point review of systems was performed and is negative, except as mentioned in the HPI. Notable negatives: , no suprapubic pain. No dysuria. No urinary frequency. PHYSICAL EXAM: VITAL SIGNS: T-max 39.4, T current 39, blood pressure 126/86, heart rate 84, respiratory rate 16, saturation 99% on room air. GENERAL: This is a well-appearing young woman, lying in bed, mild distress secondary to fever. HEENT: Great dentition. Moist mucous membranes. No conjunctival hemorrhage. No jaundice. NECK: Supple. CARDIOVASCULAR: Regular rate. No murmur. CHEST: Clear to auscultation bilaterally. ABDOMEN: Soft, nontender. Bowel sounds are present. Mild right lower flank pain. NEURO: Intact. No motor deficits. She was alert and oriented x4 and was conversational. SKIN: No rashes. LABORATORY: White count 10, hematocrit 37, platelets 197. test was negative. 76% neutrophils. Creatinine 0.6. LFTs were within normal limits. CT scan without contrast was performed on 10/30/2018, which showed a nonobstructive left 2 mm kidney stone. No right-sided obstructive uropathy. Normal appendix. Blood cultures: 1 of 2 show E coli. Urine culture shows 100, 000 ESBL E coli, still susceptible to gentamicin, meropenem, nitrofurantoin, Zosyn, tetracyclines, and tobramycin, resistance to Levaquin and Bactrim. ASSESSMENT AND PLAN: A 33-year-old woman with right-sided pyelonephritis, with bacteremia, with ongoing fever, mild leukocytosis. 1. Agree with change of antibiotics to ertapenem 1 g IV daily with a recommended 10-day course, with a stop date of 11/11/2018. Ertapenem is the only appropriate optino to treat bacteremia 2. To administer antibiotics, would place a PICC line. This was reviewed with the patient and her partner at bedside. 3. No repeat blood cultures are needed. 4. Reviewed the pathogenesis and risk factors for more resistant gram-negative rods, including prior antibiotic use. 5. Reviewed risks and benefits of ertapenem, including risks for Clostridium difficile. Time was 80 minutes, with greater than 50% of time spent with education and counseling regarding above issues. Thank you for this consultation. We will continue to see the patient on a daily basis. /[id number]/MODL MTDD
[2018-11-01] MEDS: NS 1,000 ML IV SCH (20:52)
[2018-11-01] MEDS: MELATONIN 3 MG TAB PO SCH (21:03)
[2018-11-02] MEDS: NS 1,000 ML IV SCH ×2 (04:44→13:49)
[2018-11-02] MEDS: ERTAPENEM 1 GM in NS 100 ML IV SCH (08:55)
[2018-11-02 11:54] VITALS: BP 115/81
[2018-11-02 12:06] LABS: PLATELET COUNT 145 10^3/uL (150-400)
--- NOTE | 2018-11-02 14:06 | HOSPPROG ---
Hospitalist Progress Note Assessment/Plan: 33 yo F w sepsis, ecoli bactermia 2/2 r pyelonephritis and esbl sepsis: fever, tachycardia and source pyelonephritis 2 bacteremia: change abx to erta picc line in place ID to see nephrolithiasis: uultimately needs urologic management as outpt esbl: has had recurrent uti's no great po options as above dispo: pending approval of outpt abx proph: scd's Subjective: case d/w dr alas. febrile overnight Objective: Vital Signs Temp Pulse Resp BP Pulse Ox 36.9 C 88 16 115/81 H 97 11/02/18 11:51 11/02/18 11:51 11/02/18 11:51 11/02/18 11:51 11/02/18 11:51 Laboratory Results 11/02/18 11:40 11/01/18 04:55 11/01/18 11/02/18 11/03/18 05:59 05:59 05:59 Intake Total 4734 3791 Output Total 3500 1100 900 Balance 1234 2691 -900 - Physical Exam Constitutional: no apparent distress, appears nourished Eyes: PERRL, anicteric sclera Ears, Nose, Mouth, Throat: moist mucous membranes, hearing normal Cardiovascular: regular rate and rhythym, no murmur, rub, or gallop Respiratory: no respiratory distress, no rales or rhonchi Gastrointestinal: normoactive bowel sounds, soft, non-tender abdomen Genitourinary: other (R flankl tenderness) Skin: warm, normal color Musculoskeletal: full muscle strength, no muscle tenderness Neurologic: AAOx3 ICD10 Worksheet Patient Problems: Problems Problem Status Onset Bacteremia due to Escherichia coli Acute Pyelonephritis Acute
--- NOTE | 2018-11-02 14:10 | PCMIDPN ---
Assessment/Plan: # ESBL E coli bacteremia secondary to pyelonephritis: planning 10 total days of ertapenem through 11/11. Follow up in office next week # L nephrolithiasis ---follow up w urology Microbiology 10/30/18 18:18 UCx; Escherichia Coli Esbl 10/30/18 17:30 Blood Cx 12 Escherichia Coli Esbl Subjective: feeling much better no further flank pain much more energetic Objective: Vital Signs Temp Pulse Resp BP Pulse Ox 36.9 C 88 16 115/81 H 97 11/02/18 11:51 11/02/18 11:51 11/02/18 11:51 11/02/18 11:51 11/02/18 11:51 Laboratory Results 11/02/18 11:40 11/01/18 04:55 11/01/18 11/02/18 11/03/18 05:59 05:59 05:59 Intake Total 4734 3791 Output Total 3500 1100 900 Balance 1234 2691 -900 - Physical Exam General Appearance: alert, no apparent distress Respiratory: No accessory muscle use Cardiac/Chest: regular rate, rhythm Extremities: No pedal edema Abdomen: normal bowel sounds, non-tender, soft Pelvic Exam: other (no flank pain) Skin: No rash Neuro/Psych: alert, normal mood/affect, oriented x 3 - Time Spent With Patient Time Spent with Patient: greater than 35 minutes Time Spent with Patient: Greater than 35 minutes spent on this patients care, greater than 50% of time spent counseling, educating, and coordinating care regarding the above mentioned plan. ICD10 Worksheet Patient Problems: Problems Problem Status Onset Bacteremia due to Escherichia coli Acute Pyelonephritis Acute
--- NOTE | 2018-11-02 14:11 | PDIAF ---
- Diagnosis Diagnosis: ESBL E coli bacteremia/pyelonephritis Code Status: Full Code - Medication Management Legal Examiner Antibiotics: ertapenem 1gm IV daily Intermediate Antibiotic Stop Date: 11/11/18 Discharge Medications: electronically signed and located in the Home Medication List. PICC Care - Routine: Yes - Orders Services needed: Home Shelter Care Face to Face: I certify that this patient was under my care and that I had the required [id number] encounter meeting the encounter requirements on the discharge day. My findings support the fact that the patient is homebound as defined in Home Care Face to Face Continued: CMS Chapter 7 Medicare Benefits Manual 30.1.1 , The condition of the patient is such that there exists a normal inability to leave home and consequently, leaving home would require a considerable and taxing effort. Isolation Type: Contact Isolation - Follow Up Care Current Providers and Referrals: JOHN MARTIN [Primary Care Provider] - As per Instructions Yudith Sotelo MD [Medical Doctor] - 11/11/18 1:00 pm
--- NOTE | 2018-11-02 14:20 | ASMTLACE ---
[facility] Length of stay for Answers: 2 days current admission Acuity / Level of Answers: Yes Care: Did the patient have an inpatient admission? # of Emergency department Answers: 1-2 visits in the last 6 months Score: 6 Date Signed: 11/02/2018 02:19 PM Electronically Signed By:EUGENIO Boo
--- NOTE | 2018-11-02 14:26 | ASDISCHSUM ---
Discharge Information Plan Status:Home with Home Health Medically Cleared to Leave:11/01/2018 Discharge Date:11/01/2018 CM D/C Disposition: ADT D/C Disposition: Projected Discharge Date:11/02/2018 11:00 AM Transportation at D/C: Discharge Delay Reason: Follow-Up Date:11/02/2018 11:00 AM Discharge Slot: Final Diagnosis: Placement Information Referral Type:Home Infusion Referral ID:[id number] Provider Name:[facility] Address 1:[address] Address 2: City:[place] Selection Factors: State:[place] Referral Type:*Home Health Care Services Referral ID:[id number] Provider Name:[facility] Address 1:[address] Address 2: City:[place] Selection Factors: State:[place] Patient Contact Information Contact Name:CHRISTINE Relationship:Other Address: Work Phone: City: [facility] Phone: [facility] Code: Email: Financial Information Financial Class:BCOP Primary Plan Desc:BC OUT OF [facility] Primary Plan Number:[id number] Secondary Plan Desc: Secondary Plan Number: Assessment Information [facility] CM Progress Note CM Note CM Note Notes: Pt is a 33 y/o female admitted for pyelonephritis and e coli bacteremia. Pt w/ a hx of chronic UTIs and kidney stones. Pt is currently on ivabx. Needs are TBD at this time. No therapies ordered. CM to follow. Plan: TBD Date Signed: 11/01/2018 10:10 AM Electronically Signed By:EUGENIO Boo [facility] CM Progress Note CM Note CM Note Notes: CM spoke to Dr. Sotelo. Pt will need to be on ertapenem 1gm daily until 11/11. CM made a referral to [facility] and [facility]. [facility] is able to accept. Victorina from [facility] will most likely f/u tomorrow. [facility] to run pts insurance. PICC line to be placed tomorrow, possibly. CM to follow. Date Signed: 11/01/2018 02:18 PM Electronically Signed By:EUGENIO Boo LACE LACE Length of stay for Answers: 2 days current admission Acuity / Level of Answers: Yes Care: Did the patient have an inpatient admission? # of Emergency department Answers: 1-2 visits in the last 6 months Score: 6 Date Signed: 11/02/2018 02:19 PM Electronically Signed By:EUGENIO Boo Case Management Discharge Plan Note Case Management Discharge Discharge Order Complete? Answers: Yes Patient to Obtain Answers: Independently Medications Transportation Arranged Answers: Family/Friends EMTALA Complete Answers: No Case Management Transport Answers: No Form Complete Faxed Final Orders Answers: Yes Agency/Facility Transfer Answers: Yes Report Printed & Faxed to Receiving Agency Family Notified Answers: No Discharge Comments Notes: Sourav will submit request to get ivabx covered. Sourav reports that since pt is visiting from out of town, outpatient services are not covered. Pt understands that she may need to self pay for ivabx. DC orders sent to Sourav. HELIO notified [facility] of the d/c. Pt will be seen by [facility] tomorrow AM. BELKYS Smith will call to give report. CM available for changes. Plan: BELKYS MARTE w/ Sourav Date Signed: 11/02/2018 02:24 PM Electronically Signed By:EUGENIO Boo Intervention Information
--- NOTE | 2018-11-02 14:53 | GDS ---
DISCHARGE DIAGNOSES: 1. Right-sided pyelonephritis. 2. Escherichia coli bacteremia. 3. Extended spectrum beta lactamase producing Escherichia coli. 4. Nephrolithiasis. Please see admission history and physical by KYA Nj. The patient presented with flan k pain and fevers. She was seen in the emergency department the day prior and diagnosed with pyelone phritis. Blood cultures were drawn. They returned positive. [facility] E coli ultimately proved to be ESBL. She was started on ertapenem. She continued to have fevers whi le here, which is consistent with a diagnosis of pyelonephritis. The patient needed to be seen by Infectious Disease. PICC line was placed, and she will receive a 10 -day course of ertapenem. /[id number]/MODL
--- NOTE | 2018-11-02 18:09 | PDMN ---
Medical Necessity Medical necessity: Changed to inpt as of 10/31/17 @ 18:56 per MD order and MCG M- 300, Urinary Tract Infection. 33 y/o presenting w/severe R sided flank pain, fevers, chills, rigors, and nausea admitted w/acute complicated UTI w/ acute pyelonephritis, acute E.Coli bacteremia, and borderline sepsis w/high WBC ct and tachycardia, significant pain. Est LOS>2MN for management of above.
--- NOTE | 2018-11-07 12:24 | PQFORM ---
PHYSICIAN QUERY FORM Needs Your Response This query form is being sent to you to assure this patient record is coded properly. 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 Please clarify whether this patient had Sepsis or Bacteremia. ___ Bacteremia _X__ Sepsis ___ Other (please specify ) ___ Unable to determine Thank You Julianna SONG Electronics Manufacturer INSTRUCTIONS FOR RESPONSE: Answer question by clicking on the "Edit Document" button. Move cursor to area below the stars. When complete, hit "Save." Click on the "Sign" button, then click "Sign" again. Type in your PIN and hit "Enter." MTDD
== END 2018-11-02 14:55 | disposition home or self-care (01) | DRG 872 ==
LOC: INTOOBSV 14:42 → F3E 15:50 → OBSVTOIN 18:56
PROVIDERS: ADMIT Internal Medicine; ATTEND Internal Medicine
PROC: 02HV33Z Insertion of Infusion Device into Superior Vena Cava, Percutaneous Approach (ICD-10-PCS; principal; 2018-11-02)
DX: A41.51 Sepsis due to Escherichia coli [E. coli] (principal); N10 Acute pyelonephritis; N20.0 Calculus of kidney; Z87.440 Personal history of urinary (tract) infections; Z87.442 Personal history of urinary calculi; F17.210 Nicotine dependence, cigarettes, uncomplicated
CPT/HCPCS: 96365; C1751; J0696; J1335; J1885